=== PATIENT | female | born 1990 | race African-American/Black ===

== ENCOUNTER 2018-11-16 19:25 | Emergency (ER) | payer OTHER, SELFPAY | END 2018-11-16 19:53 | disposition home or self-care (01) | LOC: NAV ERS 19:25 | DX: L98.9 Disorder of the skin and subcutaneous tissue, unspecified (principal); I10 Essential (primary) hypertension | CPT/HCPCS: 99283 ==

== ENCOUNTER 2020-08-31 18:40 | Emergency (ER) | payer SELFPAY ==
[2020-08-31] MEDS ORDERED: cloNIDine 0.1 MG TAB ONE (19:16)
== END 2020-08-31 20:40 | disposition home or self-care (01) ==
LOC: NAV ERS 18:40
DX: I10 Essential (primary) hypertension (principal); Z79.899 Other long term (current) drug therapy
CPT/HCPCS: 99283

== ENCOUNTER 2020-10-02 09:30 | Emergency (ER) | payer MEDICAID, SELFPAY ==
[2020-10-02] MEDS ORDERED: cloNIDine 0.1 MG TAB ONE (10:17)
== END 2020-10-02 11:30 | disposition home or self-care (01) ==
LOC: NAV ERS 09:30
DX: I10 Essential (primary) hypertension (principal); E11.9 Type 2 diabetes mellitus without complications; Z79.899 Other long term (current) drug therapy
CPT/HCPCS: 99283

== ENCOUNTER 2020-12-30 20:51 | Emergency (ER) | payer MEDICAID ==
[2020-12-30] MEDS ORDERED: Lidocaine 1% (PF) 30 ML VIAL ONE (22:18)
[2020-12-30] MEDS ORDERED: Sulfameth/Trimethoprim DS 800-160mg TAB ONE (22:49)
== END 2020-12-30 23:00 | disposition home or self-care (01) ==
LOC: NAV ERS 20:51
DX: L02.213 Cutaneous abscess of chest wall (principal); E11.9 Type 2 diabetes mellitus without complications; I10 Essential (primary) hypertension; E66.9 Obesity, unspecified; Z79.899 Other long term (current) drug therapy
CPT/HCPCS: 10060; J2001

== ENCOUNTER 2021-01-01 11:47 | Emergency (ER) | payer MEDICAID, SELFPAY | END 2021-01-01 12:33 | disposition home or self-care (01) | LOC: NAV ERS 11:47 | DX: L02.213 Cutaneous abscess of chest wall (principal); I10 Essential (primary) hypertension; E66.9 Obesity, unspecified; Z79.899 Other long term (current) drug therapy | CPT/HCPCS: 99282 ==

== ENCOUNTER 2021-01-29 23:20 | Emergency (ER) | payer SELFPAY ==
[2021-01-30 00:45] LABS: #Basophils 0.1 thou/uL (0.0-0.2); #Eosinphils 0.1 thou/uL (0.0-0.7); #Lymphocytes 2.9 thou/uL (1.20-3.40); #Monocytes 0.6 thou/uL (0.11-0.59); #Neutrophils 4.7 thou/uL (1.40-6.50); %Basophils 0.6 % (0.0-1.0); %Eosinophils 0.7 % (0.0-10.0); %Lymphocytes 34.8 % (21.0-51.0); %Monocytes 7.3 % (0.0-10.0); %Neutrophils 56.6 % (42.0-75.0); Hemoglobin 11.3 g/dL (12.0-16.0); Mean Corpuscular HGB CONC 30.5 g/dL (32.0-36.0); Mean Corpuscular Hemoglobin 26.8 pg (27.0-31.0); Mean Corpuscular Volume 87.9 fL (78.0-98.0); Mean Platelet Volume 6.7 fL (7.4-10.4); Platelet Count 339 thou/uL (130-400); RBC Distribution Width 13.3 % (11.5-14.5); Red Blood Cell (RBC) Count 4.21 mill/uL (4.20-5.40); White Blood Cell (WBC) Count 8.2 thou/uL (4.8-10.8)
[2021-01-30 00:56] LABS: Anion Gap 13 mmol/L (10-20); BUN (Urea Nitrogen) 17 mg/dL (7.0-18.7); Calc. Creatinine Clearance 0 mL/min (70-130); Calcium 9.3 mg/dL (7.8-10.44); Carbon Dioxide 27 mmol/L (22-29); Chloride 102 mmol/L (98-107); Glucose 95 mg/dL (70-105); Potassium 3.4 mmol/L (3.5-5.1); Sodium 139 mmol/L (136-145)
== END 2021-01-30 01:27 | disposition home or self-care (01) ==
LOC: NAV ERS 23:20
DX: R07.89 Other chest pain (principal); I10 Essential (primary) hypertension; Z79.899 Other long term (current) drug therapy
CPT/HCPCS: 36415; 80048; 84484; 85025; 93005

== ENCOUNTER 2023-07-14 07:45 | Emergency (ER) | payer BC, SELFPAY ==
[2023-07-14] MEDS ORDERED: Acetaminophen 500 MG TAB ONE (08:15)
== END 2023-07-14 08:31 | disposition home or self-care (01) ==
LOC: NAV ERS 07:45
DX: J10.1 Influenza due to other identified influenza virus with other respiratory manifestations (principal); R03.0 Elevated blood-pressure reading, without diagnosis of hypertension; I10 Essential (primary) hypertension; Z86.16 Personal history of COVID-19
CPT/HCPCS: 99283